=== PATIENT | male | born 1945 | race Caucasian/White ===

== ENCOUNTER 2022-05-26 11:29 | Outpatient (CLI) | payer OTHER, SELFPAY ==
[2022-05-26 15:16] LABS: Albumin* 4.3 g/dL (3.3-5.0); Chloride* 108 mmol/L (96-114)
[2022-05-26 15:17] LABS: Potassium* 4.7 mmol/L (3.6-5.1)
[2022-05-26 15:19] LABS: Alkaline Phosphatase* 89 U/L (40-150); Aspartate Amino Transferase* 27 U/L (12-35); Bilirubin Total* 0.7 mg/dL (0.1-1.5); Blood Urea Nitrogen* 21 mg/dL (7-30); Carbon Dioxide* 29 mmol/L (20-32); Cholesterol* 181 mg/dL (90-199); Creatinine* 1.2 mg/dL (0.5-1.5); Estimated Glomerular Filt Rate 63 ml/min; Total Protein* 6.9 g/dL (6.0-8.3)
[2022-05-26 15:20] LABS: Alanine Aminotransferase* 20 U/L (4-50); Calcium* 9.3 mg/dL (8.4-10.6); Glucose* 80 mg/dL (60-115); HDL Cholesterol* 45 mg/dL (>=40); LDL Cholesterol Calculated 106 mg/dL (<100); Triglycerides* 152 mg/dL (40-149)
[2022-05-26 15:35] LABS: Sodium* 144 mmol/L (135-149)
== END 2022-05-26 11:30 | disposition home or self-care (01) ==
PROVIDERS: Visit Provider Family Medicine
DX: E78.5 Hyperlipidemia, unspecified (principal); I50.9 Heart failure, unspecified; N18.2 Chronic kidney disease, stage 2 (mild)
CPT/HCPCS: 80053; 80061

== ENCOUNTER 2022-06-24 12:40 | Outpatient (CLI) | payer OTHER, SELFPAY | END 2022-06-24 12:41 | disposition home or self-care (01) | LOC: RAD 12:41 | PROVIDERS: PCP Family Medicine; Visit Provider Family Medicine | DX: I50.9 Heart failure, unspecified (principal); I51.7 Cardiomegaly; I34.0 Nonrheumatic mitral (valve) insufficiency | CPT/HCPCS: 93306 ==

== ENCOUNTER 2022-08-20 10:39 | Emergency (ER) | payer OTHER, SELFPAY ==
[2022-08-20] VITALS (17 sets, daily range): BP systolic 123–141; BP diastolic 75–89; PULSE 71–86; RESP 20; TEMP 36.6; O2SAT 84–100; BMI 36.9
--- NOTE | 2022-08-20 11:31 | ED_ITS ---
HPI - General Adult General Time Seen by Provider: 11:31 Date Seen: 08/20/22 Chief complaint: Neck Injury/Pain Stated complaint: pain in L shoulder and neck, concerned about heart Time Seen by Provider: 08/20/22 11:09 Source: patient and RN notes reviewed Mode of arrival: ambulatory Limitations: no limitations History of Present Illness HPI narrative: Patient is a 77-year-old male presenting to the ER with his for concern of left neck and shoulder pain that might be parts representative of heart issues. He insidiously just had the development bad neck pain on the left that went towards the point of his left shoulder. He is not sure how many days it has been there but it was severe enough yesterday that he went to the chiropractor. He states it did not hurt at all while she was working on him. It is only about a 1 or 2 in pain level at this time and is now just more on the back of his left shoulder. Biofreeze does help. He admits that he really did not sleep well because of the discomfort last night. It is not going down into the left arm. He has had a history of a heart attack before with a non STEMI on 07/02/2019 that was represented by right arm pain. He did not have chest pain at that time per his report, denies any chest pain at this time. No sense of palpitations, no difficulty breathing. No numbness tingling in his arms. No abdominal symptoms, no change with eating. Denies any fevers, denies any trauma. No prior known neck issues. Related Data Home Medications Medication Instructions Recorded Confirmed glimepiride 4 mg tablet 4 mg PO BID 04/07/22 07/14/22 metformin 1,000 mg tablet 1,000 mg PO BIDWMEAL 04/07/22 07/14/22 nitroglycerin 0.4 mg sublingual 0.4 mg sublingual Q5-15M PRN 04/07/22 07/14/22 tablet pen needle, diabetic 31 gauge x #1,200 ea 04/07/22 07/14/22/16 (BD Ultra-Fine Short Pen Needle) sitagliptin phosphate 100 mg 100 mg PO QDAY 04/07/22 07/14/22 tablet (Januvia) aspirin 81 mg chewable tablet 81 mg PO QDAY 05/16/22 07/14/22 insulin glargine 100 unit/mL (3 25 unit subcut QAM 05/17/22 07/14/22 mL) subcutaneous pen (Lantus Solostar U-100 Insulin) warfarin 5 mg tablet 5 mg PO .ud 05/17/22 07/14/22 amlodipine 10 mg tablet 10 mg PO QAM 05/26/22 07/14/22 bisoprolol fumarate 5 mg tablet 5 mg PO QAM 05/26/22 07/14/22 cefadroxil 500 mg capsule 500 mg PO QAM 05/26/22 07/14/22 ezetimibe 10 mg tablet 10 mg PO QPM 05/26/22 07/14/22 losartan 100 mg tablet 150 mg PO QPM 05/26/22 07/14/22 multivitamin (Daily Multi-Vitamin 1 tab PO QAM 05/26/22 07/14/22 tablet) Previous Rx's Medication Instructions Recorded furosemide 20 mg tablet See Rx Instructions .Route 06/13/22 .COMPLEX #90 tabs tizanidine 4 mg tablet 4 mg PO Q8H PRN muscle spasticity 08/20/22 #30 tabs Allergies Allergy/AdvReac Type Severity Reaction Status Date / Time Penicillins Allergy Mild Rash Verified 08/20/22 10:53 amoxicillin Allergy Unknown Verified 07/14/22 10:38 Review of Systems Status of ROS: Reports: 10 or more systems reviewed and unremarkable except as noted in History and below [facility] Medical History Atherosclerotic heart disease of [place] coronary artery with other forms of angina pectoris Atrial flutter Calculus of kidney (09/02/17) CHF (congestive heart failure) CKD (chronic kidney disease) stage 2, GFR 60-89 ml/min Diabetic retinopathy Dilated aortic root History of adenomatous polyp of colon (2007) Hyperlipidemia Hypertension Non-ST elevation myocardial infarction (NSTEMI) (07/12/19) Obstructive sleep apnea Type 2 diabetes mellitus with unspecified diabetic retinopathy without macular edema Surgical History History of arthroscopy of left knee (01/28/19) History of cardiac pacemaker (03/23/17) History of colonoscopy (06/12/17) History of left inguinal hernia repair (1984) History of tonsillectomy and adenoidectomy 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) History of ureter stent (1996) History of wisdom tooth extraction Social History Narrative: , robbins, nonsmoker Smoking Status: Never smoker Second hand tobacco smoke exposure: No How often do you have a drink containing alcohol: never How often do you have six or more drinks on one occasion: Never AUDIT-C Alcohol total score: 0 Non-prescribed substance use: denies use Little interest or pleasure in doing things: several days Feeling down, depressed, or hopeless: several days service: No Exam 2 Const: Vital Signs, click to edit/add: Vital Signs - 24 hr 08/20/22 10:45 08/20/22 11:42 08/20/22 13:07 Temperature 97.9 F Pulse Rate 80 Pulse Rate [Pulse Oximeter] 81 Respiratory Rate 20 Blood Pressure Blood Pressure [Ri ght Upper Arm] 123/75 Pulse Oximetry 94 100 96 Oxygen Delivery Me thod Room Air 08/20/22 13:15 08/20/22 13:30 08/20/22 13:32 Temperature Pulse Rate 79 78 79 Pulse Rate [Pulse Oximeter] Respiratory Rate Blood Pressure 130/87 Blood Pressure [Ri ght Upper Arm] Pulse Oximetry 96 91 96 Oxygen Delivery Me thod 08/20/22 13:45 08/20/22 14:06 08/20/22 14:07 Temperature Pulse Rate 74 80 80 Pulse Rate [Pulse Oximeter] Respiratory Rate Blood Pressure 141/82 H Blood Pressure [Ri ght Upper Arm] Pulse Oximetry 97 95 94 Oxygen Delivery Me thod 08/20/22 14:15 08/20/22 14:30 08/20/22 14:32 Temperature Pulse Rate 78 75 71 Pulse Rate [Pulse Oximeter] Respiratory Rate Blood Pressure 128/89 Blood Pressure [Ri ght Upper Arm] Pulse Oximetry 92 92 93 Oxygen Delivery Me thod 08/20/22 14:45 08/20/22 15:00 08/20/22 15:02 Temperature Pulse Rate 77 72 71 Pulse Rate [Pulse Oximeter] Respiratory Rate Blood Pressure 129/79 Blood Pressure [Ri ght Upper Arm] Pulse Oximetry 96 94 93 Oxygen Delivery Me thod 08/20/22 15:15 08/20/22 15:30 Temperature Pulse Rate 80 86 Pulse Rate [Pulse Oximeter] Respiratory Rate Blood Pressure Blood Pressure [Ri t Upper Arm] Pulse Oximetry 84 L 91 Oxygen Delivery Sd thod Documenting provider has reviewed patient's vital signs: yes Common normals: no apparent distress, oriented x3, no limitations, healthy appearing and alert General appearance: cooperative, comfortable, well kempt and well developed Nutritional appearance: obese HENMT: Common normals: normocephalic, head/scalp atraumatic, hearing grossly normal bilaterally, external ears normal, nasal mucous membranes and turbinates normal, moist oral mucous membranes, oropharynx normal, dentition normal and gingiva normal Head and scalp: normocephalic and atraumatic Nose: nasal mucous membranes and turbinates normal External ear: external ears normal Eye: Common normals: PERRL, EOMs intact bilaterally, conjunctivae normal and no scleral icterus Conjunctiva: conjunctiva(e) normal Pupil: PERRL Neck & C-Spine: Common normals: full ROM ( Neck is thick, no midline tenderness, no paraspinous tenderness), no lymphadenopathy, supple, no meningeal signs, no JVD and thyroid normal Thyroid: thyroid normal Lymph: Lymphatic: no lymphadenopathy noted Chest: Common normals: inspection of chest normal and palpation of chest normal Resp: Common normals: normal respiratory effort, no retractions, no use of accessory muscles and clear to auscultation bilaterally Auscultation: clear to auscultation bilaterally Cardio: Common normals: no JVD, regular rate, regular rhythm, S1 normal heart sound, S2 normal heart sound, no gallops, no clicks and no murmurs Rate: regular rate Rhythm: regular rhythm Heart sounds: S1 normal and S2 normal GI: Common normals: Normal to inspection, nondistended, normoactive bowel sounds present, soft to palpation, non-tender, no hepatosplenomegaly and no masses Palpation: soft and no hepatosplenomegaly Extremity: Other: has about 1+ pretibial pitting edema which patient states is his baseline. No calf tenderness. Has symmetrical upper extremity strength and range of motion, no focal neurologic deficits noted. Neuro: Common normals: oriented x3, CN's II-XII intact bilaterally, moves all extremities and no focal motor deficits Sensorium/orientation: alert Meningeal signs: no meningeal signs Psych: Appearance: well kempt Course Course Hospital Course: Agree with patient that we do need to consider cardiovascular disease with RI a. He has had mild constant pain all night long into today. His was wondering about repeat troponins. Did discuss with them that since he has had continual pain, it is likely a single troponin at this time should be reflective of a cardiac state and should be elevated if this is cardiac. Other considerations could be referred pain from aortic structures like dissection/ aneurysm. He is not extensively hypertensive which I would expect with those conditions but will consider this. Will get a full complement of labs. Did review with them that while he is here we will look at his neck with some plain films. We did discuss that it can be quite common for arthritic conditions in the neck to present themselves with radiculopathy. This also can stem from a nerve impingement from a disc which would be better suited to MRI imaging but is not emergently indicated at this time. He will be watched on cardiac monitoring pulse oximetry and will do full workup. will get a chest x-ray looking at cardiopulmonary etiologies. May need to consider advanced imaging. Reevaluation(s) Reevaluation #1: Have reviewed the spondylolisthesis of the cervical spine. It appears that this was documented in 2013. Does not recollect why he would have had imaging then. We are still awaiting his labs, he was quite difficult to get blood work in, still do not have any IV access. Time: 13:47 Reevaluation #2: Repeat troponin is continuing to be normal. This most definitely seems as if this is his neck. Recommend muscle relaxant, consider physical therapy but he does not feel like that is historically worked. As long as the chiropractor knows the diagnosis there were we are working with, do not have any issue with him going back as this is helped him. Talked about ice or heat in using whichever works. Worry about prednisone worsening his diabetes and he already is improved from yesterday. Do wonder if we can get by with Tylenol and a muscle relaxant. They have a follow-up scheduled with Dr. Batres this coming in the should keep that. He is aware that his INR was 2.2 here. Time: 15:44 Vital Signs Vital signs: Initial Vital Signs Temperature 97.9 F 02/25/23 10:45 Temperature Source Tympanic 08/20/22 10:45 Pulse Rate 81 08/20/22 10:45 Pulse Rhythm 08/20/22 10:45 Respiratory Rate 20 08/20/22 10:45 Blood Pressure 123/75 08/20/22 10:45 Blood Pressure Mean 91 08/20/22 10:45 Pulse Oximetry 94 08/20/22 10:45 Oxygen Delivery Method 08/20/22 10:45 Vital Signs Temperature 97.9 F 08/20/22 10:45 Pulse Rate 81 08/20/22 10:45 Respiratory Rate 20 08/20/22 10:45 Blood Pressure 123/75 08/20/22 10:45 Pulse Oximetry 94 08/20/22 10:45 Oxygen Delivery Method 08/20/22 10:45 Temperature 97.9 F 08/20/22 10:45 Pulse Rate 86 08/20/22 15:30 Respiratory Rate 20 08/20/22 10:45 Blood Pressure 129/79 08/20/22 15:02 Pulse Oximetry 91 08/20/22 15:30 Oxygen Delivery Method 08/20/22 10:45 Medical Decision Making Lab Data Lab results reviewed: Yes I reviewed the patient's lab results Labs: Lab Results 08/20/22 08/20/22 08/20/22 Range/Units 11:43 11:43 11:44 WBC (4.50-11.00) K/uL RBC (4.30-5.90) m/uL Hgb (13.5-17.5) gm/dL Hct (37.0-53.0) % MCV (80-100) fL MCH (26-34) pg MCHC (32-36) gm/dL RDW Coeff of Eric (11.5-15.5) % Plt Count (140-440) K/uL Neut % (Auto) (42.0-72.0) % Lymph % (Auto) (20-44) % Coryell % (Auto) (0.0-11.0) % Eos % (Auto) (0.0-7.0) % Baso % (Auto) (0.0-3.0) % Neut # (Auto) (1.7-7.0) K/uL Lymph # (Auto) (0.90-2.90) K/uL Coryell # (Auto) (0.00-0.90) K/UL Eos # (Auto) (0.00-0.50) K/uL Baso # (Auto) (0.00-0.30) K/uL INR 2.17 H (0.91-1.10) D-Dimer Quant (PE/DVT) 0.38 (0.00-0.50) ug/ml Sodium 140 (135-149) mmol/L Potassium 3.8 (3.6-5.1) mmol/L Chloride 107 (96-114) mmol/L Carbon Dioxide 26 (20-32) mmol/L BUN 18 (7-30) mg/dL Creatinine 0.9 (0.5-1.5) mg/dL Estimated Creat Clear 62.84 Estimated GFR 89 ml/min Glucose 113 (60-115) mg/dL Calcium 9.0 (8.4-10.6) mg/dL Total Bilirubin 0.6 (0.1-1.5) mg/dL AST 25 (12-35) U/L ALT 23 (4-50) U/L Alkaline Phosphatase 82 (40-150) U/L Troponin I 0.01 (0.01-0.04) ng/mL C-Reactive Protein 7.3 H (0.5-1.0) mg/dL NT-Pro-B Natriuret Pep 1040 pg/mL Total Protein 7.3 (6.0-8.3) g/dL Albumin 4.1 (3.3-5.0) g/dL POC Troponin I (0.01-0.04) ng/ml 08/20/22 08/20/22 Range/Units 13:00 15:10 WBC 10.08 (4.50-11.00) K/uL RBC 4.63 (4.30-5.90) m/uL Hgb 12.8 L (13.5-17.5) gm/dL Hct 39.3 (37.0-53.0) % MCV 85 (80-100) fL MCH 28 (26-34) pg MCHC 33 (32-36) gm/dL RDW Coeff of Eric 15.4 (11.5-15.5) % Plt Count 198 (140-440) K/uL Neut % (Auto) 68.4 (42.0-72.0) % Lymph % (Auto) 16.8 L (20-44) % Coryell % (Auto) 11.7 H (0.0-11.0) % Eos % (Auto) 2.7 (0.0-7.0) % Baso % (Auto) 0.2 (0.0-3.0) % Neut # (Auto) 6.90 (1.7-7.0) K/uL Lymph # (Auto) 1.70 (0.90-2.90) K/uL [place]ell # (Auto) 1.20 H (0.00-0.90) K/UL Eos # (Auto) 0.27 (0.00-0.50) K/uL Baso # (Auto) 0.02 (0.00-0.30) K/uL INR (0.91-1.10) D-Dimer Quant (PE/DVT) (0.00-0.50) ug/ml Sodium (135-149) mmol/L Potassium (3.6-5.1) mmol/L Chloride (96-114) mmol/L Carbon Dioxide (20-32) mmol/L BUN (7-30) mg/dL Creatinine (0.5-1.5) mg/dL Estimated Creat Clear Estimated GFR ml/min Glucose (60-115) mg/dL Calcium (8.4-10.6) mg/dL Total Bilirubin (0.1-1.5) mg/dL AST (12-35) U/L ALT (4-50) U/L Alkaline Phosphatase (40-150) U/L Troponin I (0.01-0.04) ng/mL C-Reactive Protein (0.5-1.0) mg/dL NT-Pro-B Natriuret Pep pg/mL Total Protein (6.0-8.3) g/dL Albumin (3.3-5.0) g/dL POC Troponin I 0.00 L (0.01-0.04) ng/ml Imaging Data Chest x-ray: Attestation: I have reviewed the pertinent imaging results. My impression: No acute pathology on my preliminary review. Do see pacemaker. Radiologist's impression: Patient: JESSY SERNA Facility:?[facility] Patient ID:?[id number] Site Patient ID:?[id number]. Site :?[id number] Study:?XRay Chest 2 VIEW-08/20/2022 12:39:18 PM Ordering Physician:Elizabeth Cifuentes Final Report: INDICATION: Left posterior shoulder pain. COMPARISON: 05/12/2022. FINDINGS: Two views of the chest were obtained. There is a pacemaker overlying the left chest. The cardiac silhouette is stable. The pulmonary vasculature is within normal limits. The lungs are clear bilaterally. There are atherosclerotic calcifications. IMPRESSION: Stable chest x-ray. No evidence of acute pulmonary disease. Dictated by Dinesh Woodward MD @ 08/20/2022 1:12:25 PM (Electronic Signature) X-ray cervical spine: Attestation: I have reviewed the pertinent imaging results. My impression: A my preliminary review, do see some anterolisthesis in the cervical spine. Do see some degenerative change, await Radiology over-read. Radiologist's impression: Patient: JESSY SERNA Facility:?[facility] Patient ID:?[id number] Site Patient ID:?[id number]. Site :?[id number] Study:?XRay Spine Cervical -08/20/2022 12:40:02 PM Ordering Physician:Elizabeth Cifuentes Final Report: INDICATION: Neck pain into left shoulder. COMPARISON: 09/13/2013. FINDINGS: AP, lateral, odontoid and swimmer`s views of the cervical spine were obtained. There is no acute fracture. There is stable 0.3 cm anterolisthesis of C4 on C5. There is marked degenerative disc disease at the C5-6 level. There is no prevertebral soft tissue swelling. IMPRESSION: No acute bone abnormality. Stable 0.3 cm anterolisthesis C4-C5 Marked degenerative disc disease C5-6. Dictated by Dinesh Woodward MD @ 08/20/2022 1:14:28 PM (Electronic Signature) ECG Data Attestation: I personally reviewed and interpreted this ECG as follows: (Atrial fibrillation with ventricular paced complexes seen. Right bundle branch block. One PVC seen. ST depression laterally.) Prior ECG tracings: available for review (Compared to 2019 EKG, ischemic changes more profound on this EKG.) Discharge Plan Discharge Clinical Impression: Spondylolisthesis, cervical region Patient Disposition: Home, Self-Care Condition: Stable Instructions: Spondylolisthesis (ED) Additional Instructions: Stable 0.3 cm anterolisthesis C4-C5 Marked degenerative disc disease C5-6. Above are the diagnoses from the cervical spine x-rays as read by the radiologist. Please show this to your chiropractor. Recommend muscle relaxant, take as prescribed. Use Tylenol 1000 mg every 6 hours as needed for symptom control. Can try ice or heat on the neck, consider starting with heat as we have discussed for your preference. Keep scheduled appointment with Dr. Dedra sands this upcoming . If symptoms are worsening again, may need to consider prednisone despite her diabetes. Dr. Batres can direct you or order an MRI if he feels this is clinically indicated in the future. Activity Level: Activity as Tolerated Prescriptions: New tizanidine 4 mg tablet 4 mg PO Q8H PRN (Reason: muscle spasticity) Qty: 30 0RF No Action metformin 1,000 mg tablet 1,000 mg PO BIDWMEAL glimepiride 4 mg tablet 4 mg PO BID Januvia 100 mg tablet 100 mg PO QDAY nitroglycerin 0.4 mg tablet, sublingual 0.4 mg sublingual Q5-15M PRN (DME) pen needle, diabetic [BD Ultra-Fine Short Pen Needle] 31 gauge x 5/16 needle See Rx Instructions .ROUTE .MEDSUPPLY Qty: 1200 Rx Instructions: As directed insulin glargine [Lantus Solostar U-100 Insulin] 100 unit/mL (3 mL) insulin pen 25 unit subcut QAM warfarin 5 mg tablet 5 mg PO .ud Label Comments: 7.5mg PO Monday, Monday, , Monday, other days 5mg losartan 100 mg tablet 150 mg PO QPM amlodipine 10 mg tablet 10 mg PO QAM bisoprolol fumarate 5 mg tablet 5 mg PO QAM cefadroxil 500 mg capsule 500 mg PO QAM ezetimibe 10 mg tablet 10 mg PO QPM aspirin 81 mg tablet,chewable 81 mg PO QDAY multivitamin [Daily Multi-Vitamin] Tablet 1 tab PO QAM furosemide 20 mg tablet See Rx Instructions .ROUTE .COMPLEX Qty: 90 1RF Dose Instruction: TAKE 1 TABLET BY MOUTH EVERY MORNING Rx Instructions: TAKE 1 TABLET BY MOUTH EVERY MORNING Follow Up/Referrals: Jessy Batres MD [Primary Care Provider] - Stand Alone Forms: The Original [employer] Info Instructions
--- NOTE | 2022-08-20 11:42 | CRLHL7_ITS ---
For Patients: As a result of the Cures Act, medical imaging exams and procedure reports are released immediately into your electronic medical record. You may view this report before your referring provider. If you have questions, please contact your health care provider. INDICATION: Neck pain into left shoulder. COMPARISON: 09/13/2013. FINDINGS: AP, lateral, odontoid and swimmer`s views of the cervical spine were obtained. There is no acute fracture. There is stable 0.3 cm anterolisthesis of C4 on C5. There is marked degenerative disc disease at the C5-6 level. There is no prevertebral soft tissue swelling. IMPRESSION: No acute bone abnormality. Stable 0.3 cm anterolisthesis C4-C5 Marked degenerative disc disease C5-6. Dictated by Dinesh Woodward MD @ 08/20/2022 1:14:28 PM (Electronically Signed)
--- NOTE | 2022-08-20 11:43 | CRLHL7_ITS ---
For Patients: As a result of the Century Cures Act, medical imaging exams and procedure reports are released immediately into your electronic medical record. You may view this report before your referring provider. If you have questions, please contact your health care provider. INDICATION: Left posterior shoulder pain. COMPARISON: 05/12/2022. FINDINGS: Two views of the chest were obtained. There is a pacemaker overlying the left chest. The cardiac silhouette is stable. The pulmonary vasculature is within normal limits. The lungs are clear bilaterally. There are atherosclerotic calcifications. IMPRESSION: Stable chest x-ray. No evidence of acute pulmonary disease. Dictated by Dinesh Woodward MD @ 08/20/2022 1:12:25 PM (Electronically Signed)
[2022-08-20 13:09] LABS: Basophils Absolute Auto 0.02 K/uL (0.00-0.30); Basophils Percent Auto 0.2 % (0.0-3.0); Eosinophils Absolute Auto 0.27 K/uL (0.00-0.50); Eosinophils Percent Auto 2.7 % (0.0-7.0); Hematocrit 39.3 % (37.0-53.0); Hemoglobin* 12.8 gm/dL (13.5-17.5); Immature Granulocytes Abs Auto 0.02 K/uL (0.00-0.30); Immature Granulocytes Pct Auto 0.2 %; Lymphocytes Percent Auto 16.8 % (20-44); Mean Corpuscular HGB Conc 33 gm/dL (32-36); Mean Corpuscular Hemoglobin 28 pg (26-34); Mean Corpuscular Volume 85 fL (80-100); Monocytes Percent Auto 11.7 % (0.0-11.0); Neutrophils Percent Auto 68.4 % (42.0-72.0); Platelet Count* 198 K/uL (140-440); RDW Coefficient of Variation % 15.4 % (11.5-15.5); Red Blood Count 4.63 m/uL (4.30-5.90); White Blood Count* 10.08 K/uL (4.50-11.00)
[2022-08-20 13:15] LABS: Slide Review Reflex No
[2022-08-20 13:23] LABS: Albumin* 4.1 g/dL (3.3-5.0); Chloride* 107 mmol/L (96-114); Potassium* 3.8 mmol/L (3.6-5.1); Sodium* 140 mmol/L (135-149)
[2022-08-20 13:25] LABS: Creatinine* 0.9 mg/dL (0.5-1.5); Est. Creatinine Clearance* 62.84; Estimated Glomerular Filt Rate 89 ml/min; INR 2.17 (0.91-1.10); Prothrombin Time 25.3 Seconds
[2022-08-20 13:26] LABS: Alanine Aminotransferase* 23 U/L (4-50); Alkaline Phosphatase* 82 U/L (40-150); Aspartate Amino Transferase* 25 U/L (12-35); Bilirubin Total* 0.6 mg/dL (0.1-1.5); Blood Urea Nitrogen* 18 mg/dL (7-30); Carbon Dioxide* 26 mmol/L (20-32); Glucose* 113 mg/dL (60-115); Total Protein* 7.3 g/dL (6.0-8.3)
[2022-08-20 13:27] LABS: D Dimer Quantitative* 0.38 ug/ml (0.00-0.50)
[2022-08-20 13:29] LABS: C Reactive Protein* 7.3 mg/dL (0.5-1.0)
[2022-08-20 13:38] LABS: Troponin I* 0.01 ng/mL (0.01-0.04)
[2022-08-20 13:40] LABS: NT Pro B Type NatriureticPept* 1040 pg/mL
== END 2022-08-20 16:02 | disposition home or self-care (01) ==
PROVIDERS: Emergency Provider Family Medicine; PCP Family Medicine
DX: M43.02 Spondylolysis, cervical region (principal)
CPT/HCPCS: 36415; 71046; 72040; 80053; 83880; 84484; 85025; 85379; 85610; 86140; 93005; 94761; 99284

== ENCOUNTER 2023-05-02 14:58 | Outpatient (RCR) | payer OTHER, SELFPAY ==
--- NOTE | 2023-05-02 17:49 | PT.OPEX ---
PT [place] Outpatient Eval PT [facility] Outpatient Eval Start: 05/02/23 15:11 Freq: Status: Active Protocol: Document 05/02/23 15:12 [facility] (Rec: 05/02/23 16:09 [facility] [id number]) E-signed By Hudson Daly, PT Physical Therapy Outpatient Evaluation Insurance Information Insurance Information/Comments [employer] PPO (Medicare) Medical Diagnosis balance disorder other abnormalities of gait and mobility R26.89 Treating Diagnosis Unsteadiness on feet R26.81 Difficulty in walking R26.[address] Cornelio Batres Subjective Subjective Pt did not have any concerns about balance until after he had a heart attack and started on 4 different medications. No falls, just feels less steady on uneven surfaces. He is ok on level surface. Currently on ezetimibe, bisopralol, glimepride, losartan, metformin, januvia, warfarin, furosemide, CoQ10. 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 Demos functional quad and glute weakness Posture: tends for stand forward bent forward at hips Balance: SLS: R: 2 seconds L: 1 second Functional Test Performed & Score CAUSEY/56 (not at high risk for falls) Limitations: tandem stance, single leg stance, forward reach, 360 deg turn in timely manner. Romberg: mild sway with eyes closed balance. Able to maintain for 30 seconds, however. Assessment Assessment/Impression 78 year old male presents to PT with concerns about his balance that started after he had his heart attack ~4 years ago. Prior to that point, he reports he did not have impaired balance. 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 He denies falls. Patient does present with impaired balance, particularly with narrow base of support/ SLS and eyes closed. He scored 46/56 on the CAUSEY, so he is not at high risk for falls and can ambulate without an AD. 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 Primary Functional Limitations bending over to miner pick something from floor walking on uneven surfaces Plan of Care Rehabilitation Potential Good Physical Therapy Goals In 4-6 weeks, patient will: 1) Demo improved balance by increasing SLS to 5 sec, each leg 2) Be I with HEP to facilitate leg strength and balance in order to prevent falls 3) Report improved confidence ambulating on uneven surfaces 4) Carry 10lb object up/down stairs safely Treatment Plan/Direct Interventions Neuromuscular Re-ed,Self-Care/ Home Management,Therapeutic Activities,Therapeutic Exercises Direct Interventions Clarification balance and LE strength Comments exercise program Frequency/Duration 1x/week for 4-6 weeks Patient Will Be Discharged From Therapy Independent w/HEP, Independently Progressing Evaluation Billing Untimed Code Treatment Minutes 20 Complexity Low Certification Information Initial Certification Date 05/02/23 Ending Certification Date 07/25/23 Provider Signature Shows Agreement With POC & Medical Necessity Physician Signature & Date Requested Please Sign/Date Here Physician Comment/Change : Physician NPI Number #
== END 2023-05-09 17:01 | disposition home or self-care (01) ==
PROVIDERS: PCP Family Medicine; Visit Provider Family Medicine
DX: R26.89 Other abnormalities of gait and mobility (principal); Z51.89 Encounter for other specified aftercare
CPT/HCPCS: 97110; 97161; 97162

== ENCOUNTER 2023-05-09 00:32 | Outpatient (CLI) | payer OTHER, SELFPAY | END 2023-05-09 00:33 | disposition home or self-care (01) | LOC: AMB 05-11 00:31 | PROVIDERS: PCP Family Medicine; Visit Provider Family Medicine | DX: R55 Syncope and collapse (principal) | CPT/HCPCS: A0425; A0433 ==

== ENCOUNTER 2023-05-09 01:22 | Observation (INO) | payer OTHER, SELFPAY ==
[2023-05-09] VITALS (22 sets, daily range): BP systolic 177–237; BP diastolic 115–154; PULSE 89–115; RESP 24–32; TEMP 36.2; O2SAT 88–98
--- NOTE | 2023-05-09 01:38 | CRLHL7_ITS ---
For Patients: As a result of the Century Cures Act, medical imaging exams and procedure reports are released immediately into your electronic medical record. You may view this report before your referring provider. If you have questions, please contact your health care provider. INDICATION: Found unresponsive in bathroom TECHNIQUE: CT Head without i.v. contrast. Coronal and sagittal reformats were obtained. COMPARISON: None FINDINGS: The sensitivity and specificity of the exam are severely limited by artifacts from patient motion. CSF space: A large amount of intraventricular hemorrhage is present, distending the right lateral ventricle, 3rd ventricle and 4th ventricle. Small amount of blood products are seen in the left lateral ventricle. Brain: A small parenchymal hematoma is present in the right temporal lobe measuring 1 cm. No mass-effect or midline shift is seen. Mild diffuse cortical atrophy is noted. A small focus of encephalomalacia is present within the right frontal parietal region near the vertex. Calvarium: The visualized paranasal sinuses are well aerated. The mastoid air cells are clear. The visualized orbits are grossly unremarkable. The calvarium is unremarkable in appearance with no fractures identified. IMPRESSIONS: 1. A small parenchymal hematoma is present in the right temporal lobe measuring 1 cm. 2. A large amount of intraventricular hemorrhage is present, distending the right lateral ventricle, 3rd ventricle and 4th ventricle. The findings were discussed with Dr. Hebert at 1:53 AM. Dictated by Kyle Funes MD @ 05/09/2023 1:52:59 AM Please note that all CT scans at this facility use dose modulation, iterative reconstruction, and/or weight-based dosing when appropriate to reduce radiation dose to as low as reasonably achievable. Dictated by: Kyle Funes MD @ 05/09/2023 01:53:12 (Electronically Signed)
[2023-05-09 02:02] LABS: Basophils Percent Auto 0.1 % (0.0-3.0); Eosinophils Percent Auto 0.6 % (0.0-7.0); Hematocrit 46.8 % (37.0-53.0); Hemoglobin* 15.6 gm/dL (13.5-17.5); Immature Granulocytes Pct Auto 0.2 %; Lymphocytes Percent Auto 9.2 % (20-44); Mean Corpuscular HGB Conc 33 gm/dL (32-36); Mean Corpuscular Hemoglobin 29 pg (26-34); Mean Corpuscular Volume 87 fL (80-100); Monocytes Percent Auto 4.4 % (0.0-11.0); Neutrophils Percent Auto 85.5 % (42.0-72.0); Platelet Count* 219 K/uL (140-440); RDW Coefficient of Variation % 14.6 % (11.5-15.5); Red Blood Count 5.37 m/uL (4.30-5.90); White Blood Count* 14.36 K/uL (4.50-11.00)
[2023-05-09 02:03] LABS: Slide Review Reflex No
--- NOTE | 2023-05-09 02:10 | ED.NURSE ---
Dr. Hebert speaking with family.
[2023-05-09 02:13] LABS: Anion Gap 16 mEq/L (7-15); Blood Urea Nitrogen* 33 mg/dL (7-30); Calcium* 9.8 mg/dL (8.4-10.6); Carbon Dioxide* 26 mmol/L (20-32); Chloride* 102 mmol/L (96-114); Creatinine* 1.3 mg/dL (0.5-1.5); Estimated Glomerular Filt Rate 57 ml/min; Glucose* 306 mg/dL (60-115); Potassium* 3.5 mmol/L (3.6-5.1); Sodium* 144 mmol/L (135-149)
[2023-05-09 02:14] LABS: C Reactive Protein* 0.9 mg/dL (0.5-1.0); Troponin I* 0.02 ng/mL (0.01-0.04)
[2023-05-09 02:16] LABS: INR 2.99 (0.91-1.10); Prothrombin Time 33.4 Seconds
--- NOTE | 2023-05-09 02:43 | ED.NURSE ---
NPA removed per Dr. Hebert verbal order.
--- NOTE | 2023-05-09 03:30 | ED.GENADULT ---
HPI - General Adult General Chief complaint: Altered Mental Status Stated complaint: Fall Time Seen by Provider: 05/09/23 01:38 Source: family and EMS Mode of arrival: EMS Limitations: physical limitation History of Present Illness HPI narrative: 78-year-old male presents to the emergency department by EMS. He was last known well at 10:00 p.m. by his . fell asleep on the couch. When she awoke she attempted to go to bed and notice that her was not there. She went looking for him and found him laying on the floor in the downstairs bathroom. She was unable to fully open the door as he was blocking the doorway. She called EMS for assistance. This was approximately 2 to 2-1/2 hours after his last known well time. She did not hear a fall. He had a busy day, baling hay and doing outside chores. No complaints of headache or illness prior to finding him on the floor. He is anticoagulated on Coumadin for AFib. He reportedly does have a pacemaker. EMS noting that patient is unresponsive. They placed a nasal airway, start him on supplemental oxygen. They were unable to get an IV and have placed an IO line in the humerus. He is brought to the emergency department. Blood sugar on route normal. Family reporting that he is full code to EMS team. Past medical history notable for type 2 diabetes, hypertension, hyperlipidemia. Medications reviewed, accurate as listed per family. Related Data Home Medications Medication Instructions Recorded Confirmed glimepiride 4 mg tablet 4 mg PO BID 04/07/22 04/03/23 metformin 1,000 mg tablet 1,000 mg PO BIDWMEAL 04/07/22 04/03/23 nitroglycerin 0.4 mg sublingual 0.4 mg sublingual Q5-15M PRN 04/07/22 04/03/23 tablet pen needle, diabetic 31 gauge x #1,200 ea 04/07/22 04/03/23/16 (BD Ultra-Fine Short Pen Needle) sitagliptin phosphate 100 mg 100 mg PO QDAY 04/07/22 04/03/23 tablet (Januvia) aspirin 81 mg chewable tablet 81 mg PO QDAY 05/16/22 04/03/23 warfarin 5 mg tablet 5 mg PO .ud 05/17/22 04/03/23 ezetimibe 10 mg tablet 10 mg PO QPM 05/26/22 04/03/23 losartan 100 mg tablet 150 mg PO QPM 05/26/22 04/03/23 multivitamin (Daily Multi-Vitamin 1 tab PO QAM 05/26/22 04/03/23 tablet) ipratropium 0.5 mg-albuterol 3 mg 3 ml inhalation PRN 11/17/22 04/03/23 (2.5 mg base)/3 mL nebulization soln ascorbic acid (vitamin C) 500 mg mg PO 04/03/23 04/03/23 capsule coenzyme Q10 10 mg capsule (Co 30 mg PO QDAY 04/03/23 04/03/23 Q-10) Previous Rx's Medication Instructions Recorded flash glucose scanning reader #1 ea 10/27/22 (FreeStyle Rajan 2 [place]) flash glucose sensor (FreeStyle #2 ea 10/27/22 Rajan 2 Sensor kit) insulin glargine 100 unit/mL (3 30 unit (0.3 mL) subcut QAM #15 mL 03/09/23 mL) subcutaneous pen (Lantus Solostar U-100 Insulin) bisoprolol fumarate 5 mg tablet 10 mg (2 x 5 mg) PO QAM #180 tabs 04/07/23 furosemide 20 mg tablet 30 mg (1.5 x 20 mg) PO DAILY #135 04/07/23 tabs peg 3350-electrolytes 236 240 ml PO Q10M #4,000 mL 05/03/23 gram-22.74 gram-6.74 gram-5.86 gram solution (Golytely) Allergies Allergy/AdvReac Type Severity Reaction Status Date / Time amoxicillin Allergy Mild Rash Verified 04/03/23 09:22 Penicillins Allergy Mild Rash Verified 04/03/23 09:22 [facility] Medical History Type 2 diabetes mellitus, with long-term current use of insulin ?E11.9 - Type 2 diabetes mellitus without complications (ICD-10) ?Z79.4 - FDC (current) use of insulin (ICD-10) Primary hypertension ?I10 - Essential (primary) hypertension (ICD-10) Mixed hyperlipidemia ?E78.2 - Mixed hyperlipidemia (ICD-10) Non-ST elevation myocardial infarction (NSTEMI) (07/12/19) ?I21.4 - Non-ST elevation (NSTEMI) myocardial infarction (ICD-10) Dilated aortic root ?I77.810 - Thoracic aortic ectasia (ICD-10) History of adenomatous polyp of colon (2007) ?Z86.010 - Personal history of colonic polyps (ICD-10) CKD (chronic kidney disease) stage 2, GFR 60-89 ml/min ?N18.2 - Chronic kidney disease, stage 2 (mild) (ICD-10) Diabetic retinopathy ?E11.319 - Type 2 diabetes mellitus with unspecified diabetic retinopathy without macular edema (ICD-10) Atherosclerotic heart disease of [place] coronary artery with other forms of angina pectoris ?I25.118 - Atherosclerotic heart disease of [place] coronary artery with other forms of angina pectoris (ICD-10) Obstructive sleep apnea ?G47.33 - Obstructive sleep apnea (adult) (pediatric) (ICD-10) Atrial flutter ?I48.92 - Unspecified atrial flutter (ICD-10) CHF (congestive heart failure) ?I50.9 - Heart failure, unspecified (ICD-10) Calculus of kidney (09/02/17) ?N20.0 - Calculus of kidney (ICD-10) Surgical History 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) ?Z96.652 - Presence of left artificial knee joint (ICD-10) History of ureter stent (1996) History of colonoscopy (06/12/17) ?Z98.890 - Other specified postprocedural states (ICD-10) History of left inguinal hernia repair (1984) ?Z98.890 - Other specified postprocedural states (ICD-10) ?Z87.19 - Personal history of other diseases of the digestive system (ICD-10) History of arthroscopy of left knee (01/28/19) ?Z98.890 - Other specified postprocedural states (ICD-10) History of cardiac pacemaker (03/23/17) ?Z95.0 - Presence of cardiac pacemaker (ICD-10) History of tonsillectomy and adenoidectomy ?Z90.89 - Acquired absence of other organs (ICD-10) History of wisdom tooth extraction ?K08.409 - Partial loss of teeth, unspecified cause, unspecified class (ICD-10) Social History Narrative: , robbins, nonsmoker Smoking Status: Never smoker Second hand tobacco smoke exposure: No How often do you have a drink containing alcohol: never How often do you have six or more drinks on one occasion: Never AUDIT-C Alcohol total score: 0 Non-prescribed substance use: denies use Little interest or pleasure in doing things: not at all Feeling down, depressed, or hopeless: not at all service: No Exam Const: Vital Signs, click to edit/add: Vital Signs - 24 hr 05/09/23 01:43 05/09/23 01:47 05/09/23 01:50 Pulse Rate 112 H 114 H 115 H Blood Pressure 214/148 H Pulse Oximetry 94 93 91 05/09/23 01:52 05/09/23 01:53 05/09/23 01:58 Pulse Rate 108 H 108 H 101 H Blood Pressure 223/139 H 204/134 H Pulse Oximetry 96 93 92 05/09/23 02:00 Pulse Rate 107 H Blood Pressure Pulse Oximetry 96 Other: Unresponsive. Will have some movements of right arm but nonpurposeful. Humberto-Mike breathing noted HENMT: Common normals: normocephalic and head/scalp atraumatic Head and scalp: normocephalic and atraumatic Mouth: oral and palatal mucosa normal Throat: posterior oropharynx normal Eye: Other: Small fixed pupils noted nonresponsive to light Neck & C-Spine: Common normals: no lymphadenopathy General: normal visual inspection Resp: Other: Humberto-Mike breathing. Bilateral air sounds noted. No obvious chest trauma. Cardio: Common normals: regular rate, regular rhythm, S1 normal heart sound, S2 normal heart sound and no murmurs Rate: regular rate Rhythm: regular rhythm Heart sounds: S1 normal and S2 normal GI: Common normals: Normal to inspection, nondistended, normoactive bowel sounds present, soft to palpation, no hepatosplenomegaly and no masses Palpation: soft and no hepatosplenomegaly Extremity: Other: No obvious effusions or trauma. No purposeful movement Neuro: [place] Coma Scale: document GCS findings Aidan coma scale eye opening: None (1) [place] coma scale verbal response: None (1) [place] coma scale motor response: Abnormal flexion (3) [place] coma scale total score: 5 Other: Poor overall muscle tone with no purposeful movement. Patient unresponsive with pinpoint bilateral pupils. No response to Narcan. Psych: Other: Fully impaired Skin: Common normals: no rashes or lesions noted General skin exam: no rashes or lesions noted Course Course ED Course: Unresponsive patient quickly assessed upon arrival. Breathing spontaneously no purposeful movement, no obvious signs of trauma. Pinpoint bilateral pupils noted. IV is placed, EKG obtained. Initial strong suspicion for stroke. Patient is brought to the CT scan within a couple of minutes. I help move the patient and await the scan in the room. The initial flash scan showing clear right-sided massive intracranial hemorrhage. I help move the patient back to the stay broom an attempt to locate family. Daughter and grandson are present. I let them know my initial findings and grave concern for his life. They tell me that his is on the way and they would like for her to make any decisions. Patient is clinically unchanged at this time and is not in imminent respiratory collapse. I allowed them this time while I go call Neurology. I spoke with Dr. Rojo. She is able to view the CT and agrees with my impression that this is a catastrophic stroke. A more dull stroke in her words. She is recommending comfort cares but is certainly willing to accept transfer of patient if the family would prefer this. After speaking with her, I revisit with family. They were under the impression that mom was already on her way but she was not. I call her on her cellphone. She lets me know that she would like for me to wait for her arrival to make any further plans and that she will be there in 5 minutes. I speak with her about 10 minutes later and let her know the neurological findings, his clinical condition, the CT findings and the recommendations of the neurologist. After answering many questions and much discussion, family is electing to make him comfort cares which I do feel is clinically appropriate. I bring them into the stay broom and allow them to observe Cornelio while I explain his clinical condition. I reassess and get no further neurological improvement. I see another patient and return 10 minutes later to check on their decision making and they have no further changes to the plan of care. Patient will be made comfort cares. I speak with the hospitalist and he is accepting of patient with comfort cares. Of note, he does have a pacemaker in this will need to be addressed as part of the plan of care. Total critical care time on this patient is 45 minutes. Vital Signs Vital signs: Initial Vital Signs Pulse Rate 112 H 05/09/23 01:43 Pulse Oximetry 94 05/09/23 01:43 Vital Signs Pulse Rate 112 H 05/09/23 01:43 Pulse Oximetry 94 05/09/23 01:43 Pulse Rate 107 H 05/09/23 02:00 Blood Pressure 204/134 H 05/09/23 01:58 Pulse Oximetry 96 05/09/23 02:00 Medications Administered Medications: Generic Name Dose Route Start Last Admin Trade Name Freq PRN Reason Stop Dose Admin Naloxone HCl 0.4 mg 05/09/23 02:38 05/09/23 01:28 Naloxone 0.4 Mg/Ml Inj IVP 05/09/23 02:39 0.4 mg ONCE ONE Administration Medical Decision Making Lab Data Lab results reviewed: Yes I reviewed the patient's lab results Lab results narrative: Findings noted. Mild leukocytosis is non likely to be infectious. Labs: Lab Results 05/09/23 Range/Units 01:25 WBC 14.36 H (4.50-11.00) K/uL RBC 5.37 (4.30-5.90) m/uL Hgb 15.6 (13.5-17.5) gm/dL Hct 46.8 (37.0-53.0) % MCV 87 (80-100) fL MCH 29 (26-34) pg MCHC 33 (32-36) gm/dL RDW Coeff of Eric 14.6 (11.5-15.5) % Plt Count 219 (140-440) K/uL Neut % (Auto) 85.5 H (42.0-72.0) % Lymph % (Auto) 9.2 L (20-44) % [place] % (Auto) 4.4 (0.0-11.0) % Eos % (Auto) 0.6 (0.0-7.0) % Baso % (Auto) 0.1 (0.0-3.0) % Neut # (Auto) 12.30 H (1.7-7.0) K/uL Lymph # (Auto) 1.30 (0.90-2.90) K/uL [place] # (Auto) 0.60 (0.00-0.90) K/UL Eos # (Auto) 0.10 (0.00-0.50) K/uL Baso # (Auto) 0.00 (0.00-0.30) K/uL Abs Immat Gran (auto) 0.00 (0.00-0.30) K/uL Imm/Tot Granulo (auto) 0.2 % INR 2.99 H (0.91-1.10) Sodium 144 (135-149) mmol/L Potassium 3.5 L (3.6-5.1) mmol/L Chloride 102 (96-114) mmol/L Carbon Dioxide 26 (20-32) mmol/L Anion Gap 16 H (7-15) mEq/L BUN 33 H (7-30) mg/dL Creatinine 1.3 (0.5-1.5) mg/dL Estimated GFR 57 ml/min Glucose 306 H (60-115) mg/dL Calcium 9.8 (8.4-10.6) mg/dL Troponin I 0.02 (0.01-0.04) ng/mL C-Reactive Protein 0.9 (0.5-1.0) mg/dL Imaging Data CT scan - head: Attestation: I have reviewed the pertinent imaging results. My impression: Massive hemorrhagic stroke, right ventricles with midline shift Radiologist's impression: IMPRESSIONS: 1. A small parenchymal hematoma is present in the right temporal lobe measuring 1 cm. 2. A large amount of intraventricular hemorrhage is present, distending the right lateral ventricle, 3rd ventricle and 4th ventricle. The findings were discussed with Dr. Hebert at 1:53 AM. Dictated by Kyle Funes MD @ 05/09/2023 1:52:59 AM Critical Care Time Critical Care Time Critical Care Time: Yes Attestation: The patient required my highest level preparedness to intervene emergently and I personally spent this critical care time directly and personally managing the patient. This critical care time included: Obtaining a history; Examining the patient; Pulse oximetry; Ordering and reviewing of studies; Arranging urgent treatment with development of a management plan; Evaluation of patients response to treatment; Frequent reassessment discussions with other providers. This critical care time was performed to assess and manage the high probability of imminent life-threatening deterioration that could result in multiorgan failure. It was exclusive of separate billable procedures and treating other patients and teaching time. Total Critical Care Time in Minutes: 45 Discharge Plan Discharge Clinical Impression: Hemorrhagic stroke Patient Disposition: Admitted As Observation Condition: Critical
--- NOTE | 2023-05-09 04:07 | W.PM.THH&P_ITS ---
Telehealth- H&P: HPI History of Present Illness Date Seen: 05/09/23 Chief complaint: Fall Narrative: Cornelio Goodman is seen as an Interactive Telehealth visit. Cornelio Goodman is a 78 year old male with a past medical history notable for diabetes, CKD, CAD, CHF and atrial flutter on Coumadin presented via EMS due to unresponsiveness. He is not able to provide any history due to coma. History was provided by his . His last known well was around 10 PM, he was in his usual state of health. His fell asleep on the couch and when she awoke around 12:45 AM she went to the bedroom and noticed he was not in bed. She went looking for the patient and noticed he was in the downstairs bathroom on the floor, unresponsive. She was not able to open the door as he was blacking the doorway. EMS was called, they broke down the door and found him unresponsive. He was given Narcan without any change in mental status. Nasal airway was placed, he was started on supplemental oxygen. An IO was placed in the humerus. He was brought to emergency department for further evaluation. CT scan showed a large hemorrhagic stroke with significant midline shift. The ER provider discussed the case with neurology,, she relayed the guarded prognosis with family as well as the neurology recommendation for comfort care. The family agreed with the plan of care to admit the patient for symptom management at our facility. CODE STATUS was changed to DNR/DNI Review of Systems Status of ROS: Reports: unobtainable due to mental status [facility] Medical History Type 2 diabetes mellitus, with long-term current use of insulin ?E11.9 - Type 2 diabetes mellitus without complications (ICD-10) ?Z79.4 - MCC (current) use of insulin (ICD-10) Primary hypertension ?I10 - Essential (primary) hypertension (ICD-10) Mixed hyperlipidemia ?E78.2 - Mixed hyperlipidemia (ICD-10) Non-ST elevation myocardial infarction (NSTEMI) (07/12/19) ?I21.4 - Non-ST elevation (NSTEMI) myocardial infarction (ICD-10) Dilated aortic root ?I77.810 - Thoracic aortic ectasia (ICD-10) History of adenomatous polyp of colon (2007) ?Z86.010 - Personal history of colonic polyps (ICD-10) CKD (chronic kidney disease) stage 2, GFR 60-89 ml/min ?N18.2 - Chronic kidney disease, stage 2 (mild) (ICD-10) Diabetic retinopathy ?E11.319 - Type 2 diabetes mellitus with unspecified diabetic retinopathy without macular edema (ICD-10) Atherosclerotic heart disease of [place] coronary artery with other forms of angina pectoris ?I25.118 - Atherosclerotic heart disease of [place] coronary artery with other forms of angina pectoris (ICD-10) Obstructive sleep apnea ?G47.33 - Obstructive sleep apnea (adult) (pediatric) (ICD-10) Atrial flutter ?I48.92 - Unspecified atrial flutter (ICD-10) CHF (congestive heart failure) ?I50.9 - Heart failure, unspecified (ICD-10) Calculus of kidney (09/02/17) ?N20.0 - Calculus of kidney (ICD-10) Surgical History 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) ?Z96.652 - Presence of left artificial knee joint (ICD-10) History of ureter stent (1996) History of colonoscopy (06/12/17) ?Z98.890 - Other specified postprocedural states (ICD-10) History of left inguinal hernia repair (1984) ?Z98.890 - Other specified postprocedural states (ICD-10) ?Z87.19 - Personal history of other diseases of the digestive system (ICD-10) History of arthroscopy of left knee (01/28/19) ?Z98.890 - Other specified postprocedural states (ICD-10) History of cardiac pacemaker (03/23/17) ?Z95.0 - Presence of cardiac pacemaker (ICD-10) History of tonsillectomy and adenoidectomy ?Z90.89 - Acquired absence of other organs (ICD-10) History of wisdom tooth extraction ?K08.409 - Partial loss of teeth, unspecified cause, unspecified class (ICD- 10) Social History Narrative: , robbins, nonsmoker Smoking Status: Never smoker Second hand tobacco smoke exposure: No How often do you have a drink containing alcohol: never How often do you have six or more drinks on one occasion: Never AUDIT-C Alcohol total score: 0 Non-prescribed substance use: denies use Little interest or pleasure in doing things: not at all Feeling down, depressed, or hopeless: not at all service: No Meds Home Medications and Allergies Home Medications Medication Instructions Recorded Confirmed Type glimepiride 4 mg tablet 4 mg PO BID 04/07/22 04/03/23 History metformin 1,000 mg tablet 1,000 mg PO BIDWMEAL 04/07/22 04/03/23 History nitroglycerin 0.4 mg sublingual 0.4 mg sublingual Q5-15M PRN 04/07/22 04/03/23 History tablet pen needle, diabetic 31 gauge x #1,200 ea 04/07/22 04/03/23 History 5/16 (BD Ultra-Fine Short Pen Needle) sitagliptin phosphate 100 mg 100 mg PO QDAY 04/07/22 04/03/23 History tablet (Januvia) aspirin 81 mg chewable tablet 81 mg PO QDAY 05/16/22 04/03/23 History warfarin 5 mg tablet 5 mg PO .ud 05/17/22 04/03/23 History ezetimibe 10 mg tablet 10 mg PO QPM 05/26/22 04/03/23 History losartan 100 mg tablet 150 mg PO QPM 05/26/22 04/03/23 History multivitamin (Daily Multi-Vitamin 1 tab PO QAM 05/26/22 04/03/23 History tablet) ipratropium 0.5 mg-albuterol 3 mg 3 ml inhalation PRN 11/17/22 04/03/23 History (2.5 mg base)/3 mL nebulization soln ascorbic acid (vitamin C) 500 mg mg PO 04/03/23 04/03/23 History capsule coenzyme Q10 10 mg capsule (Co 30 mg PO QDAY 04/03/23 04/03/23 History Q-10) Allergies Allergy/AdvReac Type Severity Reaction Status Date / Time amoxicillin Allergy Mild Rash Verified 04/03/23 09:22 Penicillins Allergy Mild Rash Verified 04/03/23 09:22 Exam Narrative Exam Narrative: Physical Exam GENERAL: ?vital signs reviewed, well developed and nourished,unresponsive, in no acute distress HEART: Irregular rate and irregular rhythm without any rubs, murmurs, or gallops. LUNGS: Clear to auscultation bilaterally with good air movement throughout, irregular respirations ABDOMEN: Observation from nurse assisted exam, abdomen appears nondistended EXTREMITIES: Unresponsive to stimuli, unable to participate in exam SKIN:? Observed warm and dry with color normal Const Vital Signs, click to edit/add: Vital Signs - 24 hr 05/09/23 01:43 05/09/23 01:47 05/09/23 01:50 Pulse Rate 112 H 114 H 115 H Blood Pressure 214/148 H Pulse Oximetry 94 93 91 05/09/23 01:52 05/09/23 01:53 05/09/23 01:58 Pulse Rate 108 H 108 H 101 H Blood Pressure 223/139 H 204/134 H Pulse Oximetry 96 93 92 05/09/23 02:00 Pulse Rate 107 H Blood Pressure Pulse Oximetry 96 Hospitalist - H&P: Result Labs Labs: Short CBC 05/09/23 Range/Units 01:25 WBC 14.36 H (4.50-11.00) K/uL Hgb 15.6 (13.5-17.5) gm/dL Hct 46.8 (37.0-53.0) % Plt Count 219 (140-440) K/uL BMP 05/09/23 01:25 Sodium 144 Potassium 3.5 L Chloride 102 Carbon Dioxide 26 BUN 33 H Creatinine 1.3 Glucose 306 H Calcium 9.8 Cardiac Enzymes 05/09/23 Range/Units 01:25 Troponin I 0.02 (0.01-0.04) ng/mL Assessment and Plan Assessment and plan (1) Hemorrhagic stroke: Status: Acute (2) Type 2 diabetes mellitus, with long-term current use of insulin: Status: Acute (3) Primary hypertension: Status: Acute (4) Mixed hyperlipidemia: Status: Acute (5) CKD (chronic kidney disease) stage 2, GFR 60-89 ml/min: Status: Chronic (6) Atrial flutter: Status: Chronic (7) Obstructive sleep apnea: Problem comment: Does wear CPAP Status: Chronic (8) CHF (congestive heart failure): Status: Chronic (9) Anticoagulant adverse reaction: Status: Acute Plan Hemorrhagic stroke Anticoagulation with Coumadin Comfort care CT scan personally reviewed, large hemorrhagic stroke with midline shift Per ER discussion with neurology guarded prognosis even with aggressive man agement, and they did not recommend transfer. They recommended focusing on comfort. Family at bedside understands the guarded prognosis and agrees with a comfort based approach. Morphine as needed for pain or air hunger Additional comfort care medications Telehealth: Statement Statement Telehealth Visit: Today's History and Physical is provided via interactive telehealth by Pedro Linares MD.? Patient is located at [facility].? Provider is located at [facility].? Nursing staff assisted with the patient's exam. The visit being done today meets criteria for a telehealth visit and the patient or patient?s parent/guardian is aware the visit is a telehealth visit. Camera Start Time: 04:03 Camera End Time: 04:08
--- NOTE | 2023-05-09 06:45 | PC.NURSE ---
Admit note: Pt admit from ED at 0337am. Pt admit with massive stroke, pt unresponsive, pt on comfort cares. 7-8 family members at bedside. Pt brief changed for large amount of urine, Ax3 to turn. PO care supplies placed at bedside, explained to family. Pt on 2L via Oxymask per family preference, RR 32, mouth/belly breathing. No signs of pain noted on exam, PRN medications available explained to family to aide in promotion of comfort, pt's family acknowledges and declines need at this time. RN rounding on patient, warm blankets applied. Education given to family about use of oxygen and how PRN pain med such as morphine can help decrease pt's need for O2, family states understanding but O2 remains at this time. Call light provided at bedside for pt's family.
[2023-05-09] MEDS: fentaNYL 25 MCG/HR PATCH 1 PATCH TRANSDERMA (09:27)
[2023-05-09] MEDS: MORPHINE 4 MG/ML INJ IVP ×2 (09:48→11:13)
[2023-05-09] MEDS: HYOSCYAMINE SULFATE 0.125 MG TAB SUBLINGUAL (10:26)
[2023-05-09] MEDS: LORazepam 2 MG/ML inj IVP (11:13)
[2023-05-09] MEDS: SODIUM CHLORIDE 0.9 % (FLUSH) 10 ML SYRINGE 5 ML IVF (11:13)
--- NOTE | 2023-05-09 12:08 | P.DN_ITS ---
Pronouncement Note Date and Time of Date of : 05/09/23 Time of : 11:47 PCOD Preliminary cause of : Stroke of unknown etiology Contributing Factors (1) Hemorrhagic stroke: (2) Type 2 diabetes mellitus, with long-term current use of insulin: (3) Primary hypertension: (4) Mixed hyperlipidemia: (5) CKD (chronic kidney disease) stage 2, GFR 60-89 ml/min: (6) Atrial flutter: (7) Obstructive sleep apnea: (8) CHF (congestive heart failure): (9) Anticoagulant adverse reaction: Summary Additional details: [age] year old male past medical history significant for type 2 diabetes, hypertension, hyperlipidemia, CKD, atrial fibrillation on chronic anticoagulation was admitted to the medical floor for comfort care management of acute hemorrhagic stroke. Additional Data Confirmation of : no pulse, no respirations and no heart sounds Family: at bedside Attending/PCP notified?: Yes Attending physician[facility] Time Seen by Provider: 11:47 Date Seen: 05/09/23 Was code activated?: No Autopsy requested?: No mail examiner notified?: Yes Organ bank notified?: Yes Advance directives: Yes
--- NOTE | 2023-05-09 13:34 | PC.NURSE ---
Discharge Note: Rustam at 11:47 today with his family at bedside. Called [facility] they were wanting to talk with [facility] but family declined. [facility] out [facility] [place] was contact per family request and have come and taken body.
== END 2023-05-09 13:40 | disposition expired ==
LOC: ED 03:42 → MEDSURG 03:43
PROVIDERS: Admitting Provider Family Medicine; Emergency Provider Family Medicine; PCP Family Medicine; Visit Provider Family Medicine
DX: I61.9 Nontraumatic intracerebral hemorrhage, unspecified (principal); Z51.5 Encounter for palliative care; I25.118 Atherosclerotic heart disease of native coronary artery with other forms of angina pectoris; D72.829 Elevated white blood cell count, unspecified; I12.9 Hypertensive chronic kidney disease with stage 1 through stage 4 chronic kidney disease, or unspecified chronic kidney disease; E11.22 Type 2 diabetes mellitus with diabetic chronic kidney disease; N18.2 Chronic kidney disease, stage 2 (mild); I50.9 Heart failure, unspecified; I48.92 Unspecified atrial flutter; E78.2 Mixed hyperlipidemia; T45.515A Adverse effect of anticoagulants, initial encounter; G47.33 Obstructive sleep apnea (adult) (pediatric); Z99.89 Dependence on other enabling machines and devices; Z79.82 Long term (current) use of aspirin; Z79.4 Long term (current) use of insulin; Z79.84 Long term (current) use of oral hypoglycemic drugs; Z90.89 Acquired absence of other organs; Z87.19 Personal history of other diseases of the digestive system; Z95.0 Presence of cardiac pacemaker; Z96.652 Presence of left artificial knee joint; Z86.010 Personal history of colon polyps; K08.409 Partial loss of teeth, unspecified cause, unspecified class; Z98.890 Other specified postprocedural states; Z66 Do not resuscitate; Z79.85 Long-term (current) use of injectable non-insulin antidiabetic drugs
CPT/HCPCS: 36415; 70450; 80048; 82947; 82962; 84484; 85025; 85610; 86140; 96374; 96375; 99284; 99291; A9270; G0378; J2060; J2270; J2310